=== PATIENT | male | born 1955 | race Caucasian/White ===

== ENCOUNTER 2020-08-14 10:18 | Emergency (ER) | payer MEDICARE, MEDICAID ==
[2020-08-14 10:33] VITALS: BP 124/77; PULSE 125
--- NOTE | 2020-08-14 10:39 | EDM.PDOC ---
ED HPI GENERAL MEDICAL PROBLEM - General Chief Complaint: Cardiovascular Problem Stated Complaint: RAPID HEART RATE Time Seen by Provider: 08/14/20 10:27 Source of Information: Reports: Patient History Limitations: Reports: No Limitations - History of Present Illness INITIAL COMMENTS - FREE TEXT/NARRATIVE: 65-year-old male presents to the ED for evaluation of rapid heart rate. Patient has a diagnosis of chronic schizophrenia and is currently on the psychiatric wing at [facility]. The staff there have apparently appreciated gradually increasing heart rate over the last several days. It is unclear if he actually did see Dr. Paulino earlier this week.. Patient is asymptomatic in terms that he denies dizziness, shortness of breath, swelling in his legs, no chest pain. He states has been eating drinking adequately without any nausea vomiting or diarrhea. He denies any recent changes to his medications although I am not sure that he would appreciate this. He has no known thyroid disease. No history of recent blood loss. He is not on any medications that would cause reflex tachycardia. He is on Lasix 20 mg daily which could cause progressive volume depletion if he does not take adequate fluids. Onset: Unknown/Unsure (Early staff is appreciated gradually increasing heart rate over the last 5 or 6 days.) Onset Date: 08/09/20 Duration: Day(s):, Getting Worse Location: Reports: Other (Was appreciated to gradually increasing tachycardia over the last 5 to 6 days) Quality: Reports: Other (Tachycardia regular rhythm) Severity: Mild Improves with: Reports: None Worsens with: Reports: None Context: Denies: Activity, Exercise, Lifting, Sick Contact, Trauma, Other Associated Symptoms: Reports: Malaise. 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.) - Related Data Allergies Allergy/AdvReac Type Severity Reaction Status Date / Time No Known Allergies Allergy Verified 08/14/20 10:34 Home Meds: Home Meds Furosemide [Lasix] 20 mg PO DAILY PRN 08/14/20 [History] QUEtiapine [SEROquel] 50 mg PO DAILY 08/14/20 [History] fluvoxaMINE [fluvoxaMINE Maleate] 100 mg PO DAILY 08/14/20 [History] polyethylene glycoL 3350 [MiraLAX] 17 gm PO BID PRN 08/14/20 [History] risperiDONE [Risperdal] 4 mg PO DAILY 08/14/20 [History] traZODone HCl [Trazodone HCl] 50 mg PO DAILY 08/14/20 [History] Past Medical History Psychiatric History: Reports: Schizophrenia Other Psychiatric History: Paranoid type - Infectious Disease History Infectious Disease History: Reports: None Social & Family History - Family History Family Medical History: Noncontributory - Caffeine Use Caffeine Use: Reports: None - Living Situation & Occupation Living situation: Reports: Extended Care Facility (None [facility] psychiatric 1.) Occupation: Disabled ED ROS GENERAL - Review of Systems Review Of Systems: See Below Constitutional: Denies: Fever, Chills, Malaise, Weakness, Fatigue, Decreased Appetite, Weight Loss HEENT: Reports: No Symptoms Respiratory: Denies: Shortness of Breath, Wheezing, Pleuritic Chest Pain, Cough Cardiovascular: Denies: Chest Pain, Blood Pressure Problem, Claudication, Dyspnea on Exertion, Edema, Lightheadedness, Orthopnea, Palpitations Endocrine: Reports: No Symptoms GI/Abdominal: Reports: Constipation (Chronic constipation issues --felt to be secondary to medications) : Reports: Frequency Musculoskeletal: Reports: No Symptoms Skin: Reports: Dryness (To clear his lower extremities. Chronic pruritus lower extremities) Neurological: Reports: No Symptoms Psychiatric: Reports: Other (Very flat affect. Carries a diagnosis of chronic schizophrenia with paranoid ideation.) Hematologic/Lymphatic: Reports: No Symptoms Immunologic: Reports: No Symptoms ED EXAM, GENERAL - Physical Exam Exam: See Below Exam Limited By: No Limitations General Appearance: Alert, WD/WN, No Apparent Distress, Other (Temperature is 36.8 the patient does not feel warm to palpation. Heart rate is 125 and on the monitor appears to be sinus rhythm. Respiratory 16 and BP is 124/77. O2 sats were 96% on room air) Eye Exam: Bilateral Eye: Normal Inspection, PERRL (No blepharal pallor or scleral icterus appreciated.) Throat/Mouth: Other (Tongue is moist.) Head: Atraumatic, Normocephalic Neck: Normal Inspection, Supple, Non-Tender, Full Range of Motion. No: Carotid Bruit, Lymphadenopathy (L) Respiratory/Chest: No Respiratory Distress, Lungs Clear, Normal Breath Sounds, No Accessory Muscle Use Cardiovascular: Normal Peripheral Pulses, No Edema, No Gallop, No Murmur, No Rub, Tachycardia (Tachycardia proximally 125/min on the monitor and appears to be sinus.) Peripheral Pulses: 2+: Posterior Tibial (L), Posterior Tibial (R), Dorsalis Pedis (L), Dorsalis Pedis (R), 3+: Carotid (L), Carotid (R) GI/Abdominal: Normal Bowel Sounds, Soft, Non-Tender, No Organomegaly, No Mass, Pelvis Stable, Other (Mildly obese.) Back Exam: Normal Inspection, Full Range of Motion. No: CVA Tenderness (L), CVA Tenderness (R) Extremities: Normal Range of Motion, Non-Tender, No Pedal Edema Neurological: Alert, Oriented, CN II-XII Intact, Normal Cognition Psychiatric: Flat Affect Skin Exam: Warm, Dry, Intact, Other (Dry skin both lower extremities with skin flaking from the knees to the ankles bilaterally. Recent healing superficial abrasion right anterior distal tib-fib) #1 Interpretation EKG Date: 08/14/20 Time: 11:15 Rhythm: Other (Sinus tachycardia) Rate (Beats/Min): 112 [place]: LAD-Left [place] Deviation (-39 degrees) P-Wave: Present QRS: Other (Q waves appreciated leads III and aVF cannot rule out old inferior wall myocardial infarction. There is extremely poor R wave progression with delayed transition. Decreased voltage precordial leads) ST-T: Normal QT: Prolonged (Moderately prolonged) EKG Interpretation Comments: Abnormal ECG Course - Vital Signs Last Recorded V/S: Last Vital Signs Temp 36.8 C 08/14/20 10:27 Pulse 125 H 08/14/20 10:27 Resp 16 08/14/20 10:27 BP 124/77 08/14/20 10:27 Pulse Ox 95 08/14/20 10:27 - Orders/Labs/Meds Orders: Active Orders 24 hr Category Date Time Status Chest 1V Frontal [CR] Stat Exams 08/14/20 10:35 Taken Labs: Laboratory Tests 08/14/20 08/14/20 08/14/20 Range/Units 10:30 10:30 10:30 WBC 8.27 (4.23-9.07) K/mm3 RBC 5.56 (4.63-6.08) M/mm3 Hgb 16.0 (13.7-17.5) gm/dl Hct 48.3 (40.1-51.0) % MCV 86.9 (79.0-92.2) fl MCH 28.8 (25.7-32.2) pg MCHC 33.1 (32.2-35.5) g/dl RDW Std Deviation 42.7 (35.1-43.9) fL Plt Count 303 (163-337) K/mm3 MPV 9.2 L (9.4-12.3) fl Neut % (Auto) 58.3 (34.0-67.9) % Lymph % (Auto) 30.1 (21.8-53.1) % [place] % (Auto) 9.2 (5.3-12.2) % Eos % (Auto) 1.8 (0.8-7.0) Baso % (Auto) 0.4 (0.1-1.2) % Neut # (Auto) 4.82 (1.78-5.38) K/mm3 Lymph # (Auto) 2.49 (1.32-3.57) K/mm3 [place] # (Auto) 0.76 (0.30-0.82) K/mm3 Eos # (Auto) 0.15 (0.04-0.54) K/mm3 Baso # (Auto) 0.03 (0.01-0.08) K/mm3 PT 11.0 (9.7-12.0) SECONDS INR 1.03 APTT 25.9 (21.7-31.4) SECONDS Sodium 140 (136-145) mEq/L Potassium 3.8 (3.5-5.1) mEq/L Chloride 102 (98-107) mEq/L Carbon Dioxide 25 (21-32) mEq/L Anion Gap 16.8 H (5-15) BUN 17 (7-18) mg/dL Creatinine 0.9 (0.7-1.3) mg/dL Est Cr Clr Drug Dosing 82.24 mL/min Estimated GFR (MDRD) > 60 (>60) mL/min BUN/Creatinine Ratio 18.9 H (14-18) Glucose 103 (80-115) mg/dL Hemoglobin A1c (4.50-6.20) % Calcium 9.7 (8.5-10.1) mg/dL Magnesium 1.9 (1.8-2.4) mg/dl Total Bilirubin 0.4 (0.2-1.0) mg/dL AST 26 (15-37) U/L ALT 37 (16-63) U/L Alkaline Phosphatase 112 (46-116) U/L Troponin I < 0.017 (0.00-0.056) ng/mL C-Reactive Protein 0.9 (<1.0) mg/dL NT-Pro-B Natriuret Pep (0-125) pg/mL Total Protein 7.9 (6.4-8.2) g/dl Albumin 3.6 (3.4-5.0) g/dl Globulin 4.3 gm/dL Albumin/Globulin Ratio 0.8 L (1-2) TSH 3rd Generation 1.885 (0.358-3.74) uIU/mL 08/14/20 08/14/20 Range/Units 10:30 10:30 WBC (4.23-9.07) K/mm3 RBC (4.63-6.08) M/mm3 Hgb (13.7-17.5) gm/dl Hct (40.1-51.0) % MCV (79.0-92.2) fl MCH (25.7-32.2) pg MCHC (32.2-35.5) g/dl RDW Std Deviation (35.1-43.9) fL Plt Count (163-337) K/mm3 MPV (9.4-12.3) fl Neut % (Auto) (34.0-67.9) % Lymph % (Auto) (21.8-53.1) % [place] % (Auto) (5.3-12.2) % Eos % (Auto) (0.8-7.0) Baso % (Auto) (0.1-1.2) % Neut # (Auto) (1.78-5.38) K/mm3 Lymph # (Auto) (1.32-3.57) K/mm3 [place] # (Auto) (0.30-0.82) K/mm3 Eos # (Auto) (0.04-0.54) K/mm3 Baso # (Auto) (0.01-0.08) K/mm3 PT (9.7-12.0) SECONDS INR APTT (21.7-31.4) SECONDS Sodium (136-145) mEq/L Potassium (3.5-5.1) mEq/L Chloride (98-107) mEq/L Carbon Dioxide (21-32) mEq/L Anion Gap (5-15) BUN (7-18) mg/dL Creatinine (0.7-1.3) mg/dL Est Cr Clr Drug Dosing mL/min Estimated GFR (MDRD) (>60) mL/min BUN/Creatinine Ratio (14-18) Glucose (80-115) mg/dL Hemoglobin A1c 5.70 (4.50-6.20) % Calcium (8.5-10.1) mg/dL Magnesium (1.8-2.4) mg/dl Total Bilirubin (0.2-1.0) mg/dL AST (15-37) U/L ALT (16-63) U/L Alkaline Phosphatase (46-116) U/L Troponin I (0.00-0.056) ng/mL C-Reactive Protein (<1.0) mg/dL NT-Pro-B Natriuret Pep 39 (0-125) pg/mL Total Protein (6.4-8.2) g/dl Albumin (3.4-5.0) g/dl Globulin gm/dL Albumin/Globulin Ratio (1-2) TSH 3rd Generation (0.358-3.74) uIU/mL Meds: Medications Discontinued Medications Generic Name Dose Route Start Last Admin Trade Name Freq PRN Reason Stop Dose Admin Dextrose/Sodium Chloride 1,000 mls @ 999 mls/hr 08/14/20 10:45 08/14/20 10:43 Dextrose 5%-Normal Saline IV 999 mls/hr ASDIRECTED JESUS Administration - Radiology Interpretation Free Text/Narrative:: 65-year-old male presents to the ED at the request of his physician. Care staff at [facility] here in [place] feels that his heart rate has been gradually increasing over the last week. Patient is asymptomatic otherwise he denies cough sputum production fever chills recent nausea or vomiting or diarrhea. He has no history of anemia or coronary artery disease. Lamination reveals a suspect sinus tachycardia on the monitor at 125/min. He has no thyromegaly. Heart sounds are normal and lungs are clear. He does not appear anemic. Tongue is moist. At present I do not have a medication list to check through. In the interim the patient will be given D5 normal saline at open. Routine labs to be collected including a glycosylated protein due to chronic use of antipsychotic agents with the potential to reduce weight gain and diabetes. A serum TSH will be drawn as well. - Re-Assessments/Exams Free Text/Narrative Re-Assessment/Exam: 08/14/20 11:29 White count is normal at 8.27. Differential is 58.3% on the auto differential. Hemoglobin is 16.0 with hematocrit 48.3 suggesting mild hemoconcentration platelet count 303,000. PT is 11.0 with an INR of 1.03 PTT is 25.9. Hemoglobin A1c is 5.7 normal. Chest x-ray reveals slightly increased interstitial markings compatible with chronic interstitial changes. No pneumonia or pulmonary edema present. No cardiomegaly. Incidental findings of increased gap between the humerus and the acromion process suggesting bilateral rotator cuff disease. Earlier his heart rate is gradually coming down. Currently 112/min. O2 sats 95% room air. Blood pressure 158 /100 08/14/20 11:46 Sodium is 140 with a potassium of 3.8. Chloride is 102 with a bicarb of 25. Anion gap is elevated at 16.8. BUN is 17 with a creatinine of 0.9 and GFR greater than 60. UN creatinine ratio is mildly elevated at 18.9. Glucose is 103 with a glycosylated protein of 5.70. Calcium is 9.7. Magnesium is 1.9. Liver function is normal. Troponin I is less than 0.017. C-reactive protein is 0.9 BNP is 39 total protein is 7.9 with an albumin fraction of 3.6. TSH is normal at 1.88. 08/14/20 11:55 We asked the patient if he wanted anything for dinner and he chose only a Mountain Dew at present. He has been up to the bathroom twice. Since labs are normal the plan will be to discharge the patient back to the half-way. 08/14/20 12:50 time of discharge his heart rate was back up to 125/min. This reveals that he has some degree of anxiety about having his heart rate checked. When no one was looking and he was resting it was 110/min. At any rate is sinus tachycardia appears to have a benign etiology. Patient is totally asymptomatic. No changes made to any of his medications. Follow up with Dr. Paulino in clinic as planned Departure - Departure Time of Disposition: 11:57 Disposition: Home, Self-Care 01 Reason for Transfer *Q: Other Condition: Fair Clinical Impression: Fluid volume depletion, Tachycardia Referrals: Jimbo Johnson MD [Primary Care Provider] - Forms: ED Department Discharge Additional Instructions: Evaluation seen in the emergency room today in regards to noted increased heart rate over the last week. Evaluation in the emergency room did confirm an elevated heart rate at 125/min. This was a sinus tachycardia or normal rhythm. No lab abnormalities were identified other than mild hemoconcentration suggest ing volume depletion. You were treated with a liter of IV fluids and heart rate came down to 110 bpm. No other abnormalities were appreciated. Must make sure you take adequate fluids and on a daily basis. Sepsis Event Note (ED) - Evaluation Sepsis Screening Result: No Definite Risk - Focused Exam Vital Signs: Vital Signs Temp Pulse Resp BP Pulse Ox 08/14/20 10:27 36.8 C 125 H 16 124/77 95 - My Orders Last 24 Hours: My Active Orders 08/14/20 10:35 Chest 1V Frontal [CR] Stat - Assessment/Plan Last 24 Hours: My Active Orders 08/14/20 10:35 Chest 1V Frontal [CR] Stat
[2020-08-14] MEDS ORDERED: Dextrose 5%-0.9% NaCl 1,000 ML IV SCH (10:45)
[2020-08-14 11:05] LABS: HEMOGLOBIN A1C 5.7 % (4.50-6.20)
--- NOTE | 2020-08-16 09:39 | CR ---
PROCEDURE INFORMATION: Exam: XR Chest, 1 View Exam date and time: 08/14/2020 10:22 AM Age: 65 years old Clinical indication: Other: Tachycardia TECHNIQUE: Imaging protocol: XR of the chest Views: 1 view. COMPARISON: No relevant prior studies available. FINDINGS: Lungs: Slight increase interstitial markings compatible chronic interstitial change. No pneumonia or pulmonary edema present. Pleural space: Unremarkable. No pleural effusion. No pneumothorax. Heart/Mediastinum: Unremarkable. No cardiomegaly. Bones/joints: Unremarkable. IMPRESSION: Nonspecific chronic interstitial change. No acute cardiopulmonary disease present. Thank you for allowing us to participate in the care of your patient. Dictated and Authenticated by: Neville Ocampo MD 08/14/2020 11:49 AM Central Time ([place] & [place]) [facility]
== END 2020-08-14 12:30 | disposition home or self-care (01) ==
LOC: JD.ED 10:18
DX: E86.9 Volume depletion, unspecified (principal); R00.0 Tachycardia, unspecified; F20.9 Schizophrenia, unspecified; E66.9 Obesity, unspecified; Z68.31 Body mass index [BMI] 31.0-31.9, adult; Z79.899 Other long term (current) drug therapy
CPT/HCPCS: 36415; 71045; 80053; 83036; 83735; 83880; 84443; 84484; 85025; 85610; 85730; 86140; 93005; J7042; 99285-25